=== PATIENT | female | born 1990 | race Caucasian/White ===

== ENCOUNTER 2016-11-15 20:27 | Emergency (ER) | payer MEDICAID ==
[~2016-11-15] VITALS: Ht 162.6 cm; Wt 65.8 kg
[2016-11-15] MEDS ORDERED: AZITHROMYCIN 250 MG TAB PO ONE (21:00)
[2016-11-15] MEDS ORDERED: cefTRIAXone SODIUM 250 MG VL IM ONE (21:00)
[2016-11-15 21:30] VITALS: BP 146/87
== END 2016-11-15 21:07 | disposition home or self-care (01) ==
LOC: ER 20:34
DX: A64 Unspecified sexually transmitted disease (principal); B85.0 Pediculosis due to Pediculus humanus capitis; F41.9 Anxiety disorder, unspecified; Z88.0 Allergy status to penicillin; Z88.1 Allergy status to other antibiotic agents; Z88.8 Allergy status to other drugs, medicaments and biological substances; Z91.041 Radiographic dye allergy status
CPT/HCPCS: 96372; 99283; J0696